=== PATIENT | female | born 2000 | race Two or more races ===

== ENCOUNTER 2020-05-16 11:53 | Emergency (ER) | payer OTHER ==
[2020-05-16] MEDS ORDERED: ACETAMINOPHEN 500 MG TAB As Ordered ONE (13:36)
[2020-05-16] MEDS ORDERED: METOCLOPRAMIDE INJ 10MG/2ML VIAL (J2765 PER 1) As Ordered ONE (13:36)
[2020-05-16] MEDS ORDERED: diphenhydrAMINE 50MG/ML VIAL (J1200) As Ordered ONE (13:37)
[2020-05-16 14:29] LABS: HCG, SERUM QUALITATIVE NEGATIVE (NEGATIVE)
[2020-05-16 14:50] LABS: BLOOD UREA NITROGEN 16 MG/DL (7-18); CALCIUM LEVEL 8.7 MG/DL (8.5-10.1); CARBON DIOXIDE LEVEL 28 mmol/L (20-29); CHLORIDE LEVEL 109 MEQ/L (98-107); CREATININE FOR GFR 0.97 MG/DL (0.55-1.30); GLUCOSE, FASTING 78 MG/DL (70-100); POTASSIUM SERUM 3.9 MEQ/L (3.5-5.1); SODIUM LEVEL 140 MEQ/L (136-145)
[2020-06-21] MEDS ORDERED: ACET-908 PO (21:55)
[2020-06-21] MEDS ORDERED: GOOD200C PO (21:55)
[2020-06-21] MEDS ORDERED: ZONI100C17 PO (21:55)
[2020-06-21] MEDS ORDERED: ADDE1TAB14 PO (21:55)
[2020-06-21] MEDS ORDERED: TRAZ-252 PO (21:55)
[2020-06-21] MEDS ORDERED: IMIT4KIT SC (21:55)
[2020-06-22] MEDS ORDERED: ONDA4TAB6 PO (02:17)
== END 2020-05-16 15:13 | disposition home or self-care (01) ==
LOC: M ED 11:53
DX: G43.909 Migraine, unspecified, not intractable, without status migrainosus (principal); Z87.828 Personal history of other (healed) physical injury and trauma

== ENCOUNTER 2020-07-05 16:49 | Emergency (ER) | payer OTHER ==
[~2020-07-05] VITALS: Ht 167.6 cm; Wt 77.6 kg
[2020-07-05 16:49] VITALS: BP 130/80
[~2020-07-05 16:49] MED LIST: ACET-908 PO; ADDE1TAB14 PO; GOOD200C PO; IMIT4KIT SC; ONDA4TAB6 PO; TRAZ-252 PO; ZONI100C17 PO
--- NOTE | 2020-07-05 20:41 | REPVR ---
PROCEDURE INFORMATION: Exam: XR Chest, 2 Views Exam date and time: 07/05/2020 6:38 PM Age: 19 years old Clinical indication: Shortness of breath; Additional info: SOB TECHNIQUE: Imaging protocol: XR of the chest Views: 2 views. COMPARISON: No relevant prior studies available. FINDINGS: Lungs: Unremarkable. No consolidation. Pleural space: Unremarkable. No pleural effusion. No pneumothorax. Heart/Mediastinum: Unremarkable. No cardiomegaly. Bones/joints: Unremarkable. IMPRESSION: No acute findings. Electronically signed by: Collins Malone On 07/05/2020 20:40:39 PM
[2020-07-05] MEDS ORDERED: ONDA4TAB6 PO (20:55)
== END 2020-07-05 21:04 | disposition home or self-care (01) ==
LOC: M ED 16:49
DX: B34.9 Viral infection, unspecified (principal)
CPT/HCPCS: 71046; 87880; 99283; U0002

== ENCOUNTER 2020-07-30 08:54 | Emergency (ER) | payer OTHER ==
[~2020-07-30] VITALS: Ht 167.6 cm; Wt 78.7 kg
[2020-07-30 09:50] LABS: BASO % 0.8 % (0.0-1.0); EOS # 0.1 10^3/uL (0.0-0.5); EOS % 1.3 % (0.0-3.0); HEMATOCRIT 40.2 % (36.0-47.0); HEMOGLOBIN 13.8 g/dl (12.0-15.5); LYMPH # 1.5 10^3/uL (1.5-5.0); LYMPH % 28.2 % (24.0-44.0); MEAN CORPUSCULAR HEMOGLOBIN 28.3 pg (27.0-33.0); MEAN CORPUSCULAR HGB CONC 34.3 g/dl (32.0-36.5); MEAN CORPUSCULAR VOLUME 82.5 fl (80.0-96.0); MONO # 0.4 10^3/uL (0.0-0.8); NEUTROPHILS # 3.3 10^3/uL (1.5-8.5); NEUTROPHILS % 62.5 % (36.0-66.0); PLATELET COUNT, AUTOMATED 212 10^3/uL (150-450); RED BLOOD COUNT 4.87 10^6/uL (4.00-5.40); WHITE BLOOD COUNT 5.3 10^3/uL (4.0-10.0)
[2020-07-30 10:05] LABS: HCG, SERUM QUALITATIVE NEGATIVE (NEGATIVE)
[2020-07-30 10:19] LABS: ALBUMIN 3.9 GM/DL (3.2-5.2); ALT/SGPT 21 U/L (12-78); BILIRUBIN,DIRECT 0.2 MG/DL (0.0-0.2); BILIRUBIN,TOTAL 0.9 MG/DL (0.2-1.0); BLOOD UREA NITROGEN 10 MG/DL (7-18); CALCIUM LEVEL 9.4 MG/DL (8.5-10.1); CARBON DIOXIDE LEVEL 27 MEQ/L (21-32); CHLORIDE LEVEL 108 MEQ/L (98-107); CREATININE FOR GFR 1.07 MG/DL (0.55-1.30); GLUCOSE, FASTING 112 MG/DL (70-100); LIPASE 118 U/L (73-393); POTASSIUM SERUM 4.2 MEQ/L (3.5-5.1); SODIUM LEVEL 139 MEQ/L (136-145); TOTAL PROTEIN 7.3 GM/DL (6.4-8.2)
[2020-07-30 11:11] VITALS: BP 122/76
[2020-07-30 11:43] LABS: CHLAMYDIA DNA AMPLIFICATION NEGATIVE (NEGATIVE); GC DNA AMPLIFICATION NEGATIVE (NEGATIVE)
== END 2020-07-30 11:12 | disposition home or self-care (01) ==
LOC: M ED 08:54
DX: N93.8 Other specified abnormal uterine and vaginal bleeding (principal); Z87.42 Personal history of other diseases of the female genital tract

== ENCOUNTER 2020-08-22 10:17 | Emergency (ER) | payer OTHER ==
[~2020-08-22] VITALS: Ht 167.6 cm; Wt 82.4 kg
[2020-08-22] MEDS ORDERED: trazodone (10:23)
[2020-08-22] MEDS ORDERED: imitrex (10:23)
[2020-08-22] MEDS ORDERED: adderal (10:23)
[2020-08-22] MEDS ORDERED: diphenhydrAMINE 50MG/ML VIAL (J1200) IV STA (11:04)
[2020-08-22] MEDS ORDERED: NS 1,000 ML IV ONE (11:15)
[2020-08-22] MEDS ORDERED: FAMOTIDINE IV BAG 20 MG in IV 1 EA IV ONE (11:15)
[2020-08-22] MEDS ORDERED: methylPREDNISolone 125MG 2ML VIAL IV ONE (11:15)
[2020-08-22] MEDS ORDERED: EPIP0.3I2 IM (12:24)
[2020-08-22 12:48] VITALS: BP 122/68
== END 2020-08-22 12:50 | disposition home or self-care (01) ==
LOC: M ED 10:17
DX: R22.1 Localized swelling, mass and lump, neck (principal); R06.02 Shortness of breath; T78.1XXA Other adverse food reactions, not elsewhere classified, initial encounter; Z91.013 Allergy to seafood; Z79.899 Other long term (current) drug therapy
CPT/HCPCS: 96365; 96375; 99284; J1200; J2930

== ENCOUNTER 2020-10-04 09:33 | Emergency (ER) | payer OTHER ==
[~2020-10-04] VITALS: Ht 167.6 cm; Wt 78.6 kg
[~2020-10-04 09:33] MED LIST changes: +EPIP0.3I2 IM; +adderal; +imitrex; +trazodone
[2020-10-04] MEDS ORDERED: NS 1,000 ML IV ONE (10:30)
[2020-10-04] MEDS ORDERED: MORPHINE 2 MG/ML 1ML VIAL (J2270) IV ONE (10:30)
[2020-10-04 10:56] LABS: HEMATOCRIT 39.8 % (36.0-47.0); HEMOGLOBIN 13.5 g/dl (12.0-15.5); MEAN CORPUSCULAR HGB CONC 33.9 g/dl (32.0-36.5); MEAN CORPUSCULAR VOLUME 82.6 fl (80.0-96.0); PLATELET COUNT, AUTOMATED 204 10^3/uL (150-450); RED BLOOD COUNT 4.82 10^6/uL (4.00-5.40)
[2020-10-04 11:23] LABS: BLOOD UREA NITROGEN 13 MG/DL (7-18); CALCIUM LEVEL 9.4 MG/DL (8.5-10.1); CARBON DIOXIDE LEVEL 27 MEQ/L (21-32); CHLORIDE LEVEL 108 MEQ/L (98-107); GLOMERULAR FILTRATION RATE > 60.0 (>60); GLUCOSE, FASTING 86 MG/DL (70-100); POTASSIUM SERUM 4.5 MEQ/L (3.5-5.1); SODIUM LEVEL 139 MEQ/L (136-145)
[2020-10-04 11:29] LABS: HCG, SERUM QUALITATIVE NEGATIVE (NEGATIVE)
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
[2020-10-04] MEDS ORDERED: IBUP-1022 PO (14:15)
[2020-10-04] MEDS ORDERED: CYCL-707 PO (14:15)
[2020-10-04 14:28] VITALS: BP 130/82
== END 2020-10-04 14:29 | disposition home or self-care (01) ==
LOC: M ED 09:33 → EDBD 09:33 → M ED 14:29
DX: S70.11XA Contusion of right thigh, initial encounter (principal); S13.9XXA Sprain of joints and ligaments of unspecified parts of neck, initial encounter; S63.602A Unspecified sprain of left thumb, initial encounter; V47.0XXA Car driver injured in collision with fixed or stationary object in nontraffic accident, initial encounter; Y92.093 Driveway of other non-institutional residence as the place of occurrence of the external cause
CPT/HCPCS: 70110; 72125; 73130; 73552; 80048; 84703; 85027; 96374; 99284; J2270